=== PATIENT | female | born 1975 | race Caucasian/White ===

== ENCOUNTER → 2022-04-04 16:10 | Outpatient (CLI) | payer BC, SELFPAY ==
--- NOTE | 2022-04-04 16:18 | MM_ITS ---
PROCEDURE INFORMATION: Exam: Bilateral Screening 3D Mammography Exam date and time: 04/04/2022 4:15 PM Age: 47 years old Clinical indication: Screening examination. History of benign left stereotactic biopsy. TECHNIQUE: Imaging protocol: Bilateral Screening tomosynthesis and 2D mammography including computer-aided detection (CAD) when performed. COMPARISON: No relevant prior studies available. If prior mammograms are provided, I am happy to add an addendum. FINDINGS: MAMMOGRAPHY: Breast composition: There are scattered areas of fibroglandular density. Mass: Oval 0.8 cm mass related to a biopsy clip in the left upper outer quadrant middle 3rd. Architectural distortion: None. Calcifications: No suspicious calcifications. Asymmetric density: None. Skin thickening: None. Axillary adenopathy: None. IMPRESSION: See comment Pathologic correlation is recommended for stereotactic biopsy with related oval mass in the left upper outer quadrant. In the absence of pathologic discordance, annual mammographic screening is recommended. ASSESSMENT: BI-RADS Category 2: Benign
== END ==
PROVIDERS: PCP General Practice; Visit Provider General Practice
DX: Z12.31 Encounter for screening mammogram for malignant neoplasm of breast (principal)
CPT/HCPCS: 77063; 77067

== ENCOUNTER → 2023-04-29 07:45 | Outpatient (CLI) | payer BC, SELFPAY ==
--- NOTE | 2023-04-29 07:49 | MM_ITS ---
PROCEDURE INFORMATION: Exam: MG Bilateral Screening 3D Mammography Exam date and time: 04/29/2023 7:52 AM Age: 48 years old Clinical indication: Screening mammogram TECHNIQUE: Imaging protocol: Bilateral Screening tomosynthesis and 2D mammography including computer-aided detection (CAD) when performed. COMPARISON: 1. MG MM DIG SCREENING MAMM BI W/CAD 04/04/2022 4:15 PM 2. MG MAMMOGRAM ADDITIONAL VIEWS LT 3D DIGITAL 08/09/2020 3:23 PM 3. MG MAMMOGRAM BILATERAL 3D DIGITAL SCREENING 08/01/2020 2:25 PM 4. US BREAST CORE BX LT 1 SITE 08/10/2020 2:49 PM FINDINGS: MAMMOGRAPHY: Breast composition: There are scattered areas of fibroglandular density. Mass: Stable benign-appearing subcentimeter nodules are present in the left breast. No new or morphologically suspicious nodule has developed to suggest malignancy. Architectural distortion: No new or suspicious architectural distortion. Calcifications: No new or suspicious calcifications are present Asymmetric density: No new or suspicious asymmetric density is present Skin thickening: None. Axillary adenopathy: None. IMPRESSION: No mammographic evidence of malignancy. Recommend annual screening mammography unless otherwise clinically indicated. ASSESSMENT: BI-RADS category 2: Benign
== END ==
LOC: RAD 07:46
PROVIDERS: PCP General Practice; Visit Provider General Practice
DX: Z12.31 Encounter for screening mammogram for malignant neoplasm of breast (principal)
CPT/HCPCS: 77063; 77067

== ENCOUNTER 2024-09-15 08:02 | Outpatient (CLI) | payer BC, SELFPAY ==
--- OUTSIDE RECORDS SUMMARY | 2024-09-15 08:05 | XMS_ITS | Data Portability ---
Author Organization [place] - LPNT [facility] Address [address] [place] [address] Care Team Providers Care Tube Builder Airplane Name Role Phone SUNDAR ROBERTS Primary Care Provider [phone] SUNDAR ROBERTS Primary Care Provider [phone] Assessment No assessment recorded. Plan of Treatment Reminders Order Date Submit Date Provider Last Modified By Organization Details Last Modified Time Details Appointments None recorded. Lab None recorded. Referral None recorded. Procedures None recorded. Surgeries None recorded. Imaging None recorded. Medication Orders Keflex 500 mg capsule [address] [facility] [id number], [address] [place] [address], [place], [address], 15:42:31 Patient TargetsNo targets recorded. Patient Instructions Encounter Date Encounter Id Patient Instructions Last Modified By Organization Details Last Modified Time 12/31/2022 [id number] packed the wound with Aquacel Ag rope covered with an op-site She can change this daily if she prefers however can also leave up to 3 days. Follow-up in 2 weeks [email or web address] Not available 12/31/2022 16:16:07 Patient seen by physician lead dental assistant. I have reviewed the patient's medical record, the medical decision making and treatment plan. jose Not available 12/31/2022 16:16:37 01/13/2023 [id number] apply Aquacel rope covered with op-site every other day Follow-up in 3 weeks if there is an open area remaining. jose Not available 01/13/2023 16:30:10 Patient seen by physician lead dental assistant. I have reviewed the patient's medical record, the medical decision making and treatment plan. [email or web address] Not available 01/13/2023 16:30:13 Reason for Referral None Reported. Results Created Date Observation Date Name Description Value Unit Range Abnormal Flag Note LastModifiedBy Organization Detail LastModifiedTime Result Notes None recorded. Procedures Surgical History Date Name Laterality Status Provider Name and Address Organization Details Recorded Time 01/03/20 23 completed Josie Ambriz [place] - [facility] & [place] 12/31/2022 15:42:35 12/17/19 23 Excision and closure completed Chalo Morales MD [address] [place] [address],[address], [place], [address], [facility] & [place] 12/16/2022 17:47:30 05/04/19 15 Gastrointestinal Surgery completed Josie Ambriz [place] - LPNT [facility] & [place] 12/31/2022 15:42:45 05/04/19 13 Other completed [facility] & [place] 12/31/2022 15:42:44 Imaging Results None recorded. Procedure Notes None recorded. Medical Equipment None Reported. Allergies No known drug allergies Medications Name Sig Start Date Stop Date Status Note LastModified by Organization Details LastModified Time blood pressu solution kit active Not Available Not Available Not Available clobetasol 0.05 % topical cream 12/23 completed Not Available Not Available Not Available cephalexin 500 mg capsule Take 1 capsule 3 times a day by oral route for 5 days. active Not Available Not Available No t Available triamcinolon e acetonide 0.1 % topical ointment 12/23 completed Not Available Not Available Not Available ergocalcifer ol (vitamin D2) 1,250 mcg (50,000 unit) capsule 12/23 completed Not Available Not Available Not Available nitrofuranto in monohydrate/ macrocrystal s 100 mg capsule 12/23 completed Not Available Not Available Not Available Vitals Date Recorded Body weight Heart rate Oxygen saturation Oxygen saturation in Arterial blood by Pulse oximetry Body temperature Systolic blood pressure Diastolic blood pressure Provider Name and Address Organization Details Last Updated DateTime 3 341664. 36 g 79 /min 96 % 96 % 98.4 [degF] 128 mm[Hg] 69 mm[Hg] Josie RAMIREZ LPNT [facility] & [place] 14:45:31 Date Recorded Body temperature Provider Name a nd Address Organization Details Last Updated DateTime 12/23/2022 98.1 [degF] Josette RAMIREZ LPNT Benjamin Jacobson [facility] & [place] 12/23/2022 15:20:31 Date Recorded Body height Provider Name an d Address Organization Details Last Updated DateTime 01/13/2023 160.02 cm Crystal Alexander LPNT Benjamin Jacob[facility] & [place] 01/13/2023 15:46:33 Social History Question Answer Notes LastModified by Organizat ion Details LastModified Time Tobacco Smoking Status Never Smoker Josie Ambriz [facility], [place] [facility] & [place] 12/31/2022 15:42:41 Do You Have An Advance Directive? No [email or web address] Information not available 12/31/2022 Are You Blind Or Do You Have Difficulty Seeing? No [email or web address] Information not available 12/31/2022 What Was The Date Of Your Most Recent Tobacco Screening? 12/15/2022 [email or web address] Information not available 12/31/2022 Are You Passively Exposed To Smoke? No Information not available 12/31/2022 Sex: Unknown Functional Status Question Answer Note LastModified by Organizat ion Details LastModified Time Do you use any illicit or recreational drugs? No [email or web address] Information not available 12/31/2022 What is your level of alcohol consumption? None [email or web address] Information not available 12/31/2022 What is your exercise level? Occasional [email or web address] Information not available 12/31/2022 Mental Status Question Answer Note LastModified by Organization D etails LastModified Time Do you feel stressed (tense, restless, nervous, or anxious, or unable to sleep at night)? [id number] [email or web address] Information not available 12/31/2022 Family History Relationship Description Onset Age of this Age Resolved Age Notes LastModified by Organization Details LastModified Time Mother Disorder of endocrine system pt. added direct ly (12/15) [email or web address] Not available 12/15/2022 14:44:03 Mother Heart disease pt. added direct ly (12/15) [email or web address] Not available 12/15/2022 14:44:16 Mother Hypertensive disorder pt. added direct ly (12/15) [email or web address] Not available 12/15/2022 14:44:25 Medical History No medical history recorded. Gynecological History Statement/Question Response Abnormal Pap N Flow Moderate 01/02/2023 Sexually Active? Y Menses Monthly Y Duration of Flow (days) 5 Current Control Method N/A Obstetrics History GPAL:G 0 P 0 0 0 0 Past Encounters Encounter ID Performer Location Encounter Start Date Encounter Closed Date Diagnosis/Indication Diagnosis SNOMED-CT Code Diagnosis ICD10 Code Diagnosis Note [id number] MD TELLO Gomez [facility] [address] [place] [address] 8 12/16/2022 13:46:47 12/16/2022 16:12:34 Ruptured epidermal cyst 158162529 L72.0 excision. [id number] MD TELLO Gomez [facility] [address] [place] [address] 8 12/23/2022 15:07:53 12/23/2022 15:18:33 Postoperative visit 444094315 Z09 Keflex 500 mg t.i.d. x5 days. [id number] JANNETH Londono [facility] [address] [place] [address] 8 12/31/2022 15:35:03 12/31/2022 16:11:31 Postoperative visit 911572544 Z09 SP excision epidermal inclusion cyst mid upper back with dehiscence [id number] JANNETH Londono [facility] [place] [address] 8 01/13/2023 15:40:01 01/13/2023 16:24:36 Dehiscence of surgical wound 18996010 T81.30XD Health Concerns Section Related Observation LastModified by Organization Detai ls LastModified Time None Recorded Concern Status LastModified by Organization Details LastModified Time None Recorded Advance Directives Directive N: Payers Insurance Date Sequence Insurance Name Policy Number Policy Rodriguez Covered Member ID Rodriguez Member ID Guarantor Name 01/12/2023 1 [place] ([place]) [id number] Shelby Proctor [id number] Shelby Proctor 12/15/2022 SLIDING FEE SCHEDULE - DISCOUNT Shelby Proctor Notes Date Note Type Note Provider Name and Address Organization Details Recorded Time 12/16/2022 text/html Rosa has had a cyst on her back for several years. Over the last month or so it is gotten quite a bit larger and painful and has started to drain. She has not been given any antibiotics. She is never had anything like this before. Chalo Morales MD [address] [place] [address],[address], [place], [address], [facility] 12/16/2022 17:49:07 12/23/2022 text/html Shelby is a 47-year-old woman who is 1 week status post excision of a ruptured epidermal cyst on her back. She states that this has been draining and was evaluated by the work nurse and was told to have it checked out. She denies any increased pain or fevers. Chalo Morales MD [address] [place] [address],[address], [place], [address], [facility] 12/23/2022 19:35:35 12/31/2022 text/html Shelby returns today for wound check. She had an epidermal inclusion cyst excised 12/16/2022. The wound edges subsequently dehisced and she is here today for suture removal and re-evaluation. Her mother has been changing her dressing daily and says that there has been some drainage. JANNETH Londono [address] [place] [address],[address], [place], [address], [facility] 12/31/2022 16:20:48 01/13/2023 text/html Shelby returns today for wound check. She had an epidermal inclusion cyst excised 12/16/2022. The wound edges subsequently dehisced Her mother has been changing her dressing of Aquacel silver rope covered with Tegaderm. JANNETH Londono [address] [place] [address],[address], [place], [address], [place] - [facility] - [place] & [place] 01/13/2023 16:30:23 OBGyn Episode No OBEpisode recorded.
--- OUTSIDE RECORDS SUMMARY | 2024-09-15 08:05 | XMS_ITS | Data Portability ---
Author Organization [facility] Address [address] [place] [address] Care Team Providers Care Supervisor Plastering Name Role Phone VIMAL JAQUEZ It Service Continuity Supervisor ESTHER JAMESON Primary Care Provider Assessment No assessment recorded. Plan of Treatment Reminders Order Date Submit Date Provider Last Modified By Organization Details Last Modified Time Details Appointments None recorded. Lab surgical pathology study 2023 024 [facility], [address] [place] [address], [address], 13:10:34 Referral None recorded. Procedures None recorded. Surgeries None recorded. Imaging None recorded. Medication Orders clobetasol 0.05 % topical cream [address] [facility] [id number], [address] [place] [address], [place], [address], 4 11:31:29 Patient TargetsNo targets recorded. Patient InstructionsNo instructions recorded. Reason for Referral None Reported. 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 Preti bial pruri tic papul ar derma tosis is favor ed. SOURC E OF SPECI MEN: SKIN, R ECKERT CLINI PRATIK INFOR MATIO N: R/O: LICHE N SIMPL EX CHRON ICUS. Gross Descr iptio n: The speci men consi sted of a singl e reed fragm ent which measu red 3 x 3 x 3 mm. All is submi tted in toto in one casse tte. Micro scopi c Descr iptio n: The epide rmis is ulcer ated and is cover ed with a hemor rhagi c and infla mmato ry crust . The adjac ent epide rmis is not signi fican tly acant hotic . There is mild spong iosis . The strat um corne um is nitin ct and parak erato tic. The super ficia l dermi s has an inter stiti al infil trate of lymph ocyte s and scatt ered eosin ophil s. There is mild fibro sis as well. CARMEN CARLIN MD Clotilde d Out Date: 03/14 13:10 1 Not Available [facility] [address], [place], [address], 03/14/2024 13:10:34 Result Notes None recorded. Procedures Surgical History Date Name Laterality Status Provider Name and Address Organization Details Recorded Time 03/10/2024 Punch Biopsy completed Jessica Rodrigez [facility] 03/10/2024 11:03:24 Imaging Results None recorded. Procedure Notes None recorded. Medical Equipment None Reported. Allergies No known drug allergies Medications Name Sig Start Date Stop Date Status Note LastModified by Organization Details LastModified Time clobetasol 0.05 % topical cream APPLY A THIN LAYER TO THE AFFECTED AREA(S) BY TOPICAL ROUTE 2 TIMES PER DAY FOR 2 WEEK THEN TAKE 2 WEEK BREAK. CAN REPEAT CYCLE NEEDED FOR FLARES 024 active Not Available Not Available Not Avai lable Vitals None Recorded Social History None recorded. Functional Status None recorded. Mental Status None recorded. Family History Nothing Reported. Medical History No medical history recorded. Gynecological HistoryNo gynecological history recorded. 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 If she is not flaring, she will cx appt and r/s for when flaring Melanocyti c nevus of face 347974943 D22.39 Benign appearing nevi noted on exam. Reassured. Monitor for changes and call us for appt if changing or worrisome. Recommende d daily SPF 30 (or higher) broad-spec trum sunscreen usage with re-applica tion every 2 hours, as well as sun protection measures, including wide-brimm ed hats, wearing of protective clothing, and avoidance of sun during peak hours of the day 10 am - 4 pm. Avoid tanning beds as these can increase chances of all 3 main types of skin cancers. Seborrheic keratosis 394 591694 L82.1 Seborrheic keratosis are benign but may be cosmetical ly bothersome . Cosmetic removal with liquid nitrogen is an option. This may leave discolorat ion, or the SK may persist or recur at the treatment site. Solar lentigo 12236229 L 81.4 - Benign brown spots - Sun-induce d Dermatofib jessica of left lower limb 4549668907 523929 D23.72 Dermatofib romas are benign tumors of fibrous cells. They may start from a small injury to the skin. RTC if changing. If bothersome , can be excised. [id number] JOHN SANCHEZ PA-C [facility] [address] [place] [address] 03/10/2024 10:35:07 03/10/2024 11:16:26 Eruption 898370857 R21 The nature of the diagnosis was explained. High suspicion for LSCPt reports flares in the fall/winte r months.Giv en TAC in the past with mild improvemen tTreatment options and expectatio ns discussed. Biopsy requested- 3mm punch biopsy taken today.Heal ing process and wound care discussed. Will call pt with resultsRx prescribed Clobetasol Cream - SE ReviewedPt encouraged to call with any concerns or questions. Health Concerns Section Related Observation LastModified by Organization Detai ls LastModified Time None Recorded Concern Status LastModified by Organization Details LastModified Time None Recorded Advance Directives Directive None Recorded Payers Insurance Date Sequence Insurance Name Policy Number Policy Rodriguez Covered Member ID Rodriguez Member ID Guarantor Name 03/14/2024 1 [place] [id number] Shelby Proctor [id number] Shelby Proctor Notes Date Note Type Note Provider Name and Address Organization Details Recorded Time 12/30/2023 text/html Patient is here for a rash - location(s): {{ R lower leg#}}- duration: {{ 4-5 years#}}- symptoms: {{ itchy#}}- any new medications in the past 6 months? {{yes no*}}- treatments tried: {{ PCP gave topicals, unsure of names#}}- reports: usually flares up in the fall Feb-Apr, but this year it lasted longer and scarred VIMAL LAW MD [address] [place] [address], [address], [facility] 12/30/2023 12:16:32 03/10/2024 text/html Rash Duration: 5 years- pt says it only comes in the winter months.Location: R legPrior tx: TAC- helps slightlyReports: very itchy - last seen by quita in dec. poss [facility] Last seen 12/2023 JOHN SANCHEZ PA-C [facility] [place], [address], [facility] 03/10/2024 12:18:14 OBGyn Episode No OBEpisode recorded.
--- NOTE | 2024-09-15 08:07 | MM_ITS ---
PROCEDURE INFORMATION: Exam: MG Bilateral Screening 3D Mammography Exam date and time: 09/15/2024 8:09 AM Age: 49 years old Clinical indication: Screening examination TECHNIQUE: Imaging protocol: Bilateral Screening tomosynthesis and 2D mammography including computer-aided detection (CAD) when performed. COMPARISON: 1. MG MM DIG SCREENING MAMM BI W/CAD 04/29/2023 7:52 AM 2. MG MM DIG SCREENING MAMM BI W/CAD 04/04/2022 4:15 PM FINDINGS: MAMMOGRAPHY: Breast composition: There are scattered areas of fibroglandular density. Mass: None. Architectural distortion: None. Calcifications: No suspicious calcifications. Asymmetric density: None. Skin thickening: None. Axillary adenopathy: None. IMPRESSION: No mammographic evidence of malignancy. Annual screening is recommended unless otherwise clinically indicated. ASSESSMENT: BI-RADS 1, Negative.
== END 2024-09-15 23:59 | disposition home or self-care (01) ==
LOC: RAD 08:04
PROVIDERS: PCP General Practice; Visit Provider Nurse Practitioner Family
DX: Z12.31 Encounter for screening mammogram for malignant neoplasm of breast (principal)
CPT/HCPCS: 77063; 77067